=== PATIENT | male | born 1990 | race Two or more races ===

== ENCOUNTER 2019-05-27 11:36 | Emergency (ER) | payer OTHER ==
[~2019-05-27] VITALS: Ht 165.1 cm; Wt 72.7 kg
[2019-05-27] MEDS ORDERED: IBUP-1506 PO (11:45)
[2019-05-27] MEDS ORDERED: BACITRACIN 0.9 GM PACKET OINTMENT TP ONE (13:15)
[2019-05-27] MEDS ORDERED: LIDOCAINE 1% 10 ML VIAL INJ ONE (13:15)
[2019-05-27] MEDS ORDERED: POVIDONE-IODINE 10% 15 ML SOLUTION UD TP ONE (13:15)
[2019-05-27 15:22] VITALS: BP 117/67
== END 2019-05-27 15:27 | disposition home or self-care (01) ==
LOC: EMS 11:38 → EDBD 11:38 → EMS 15:27
DX: S01.511A Laceration without foreign body of lip, initial encounter (principal); W45.8XXA Other foreign body or object entering through skin, initial encounter; Y93.89 Activity, other specified; Y92.89 Other specified places as the place of occurrence of the external cause; Y99.0 Civilian activity done for income or pay
CPT/HCPCS: 12011; 99283; J3490